=== PATIENT | female | born 1945 | race Caucasian/White ===

== ENCOUNTER 2018-05-16 09:26 | Outpatient (CLI) | payer MEDICARE | END 2018-05-16 23:59 | LOC: VAS 09:26 | PROVIDERS: ATTEND Family Medicine | DX: I70.8 Atherosclerosis of other arteries (principal); J44.9 Chronic obstructive pulmonary disease, unspecified; F17.200 Nicotine dependence, unspecified, uncomplicated | CPT/HCPCS: 93880 ==

== ENCOUNTER 2021-12-19 16:38 | Emergency (ER) | payer MEDICARE ==
[~2021-12-19] VITALS: Ht 167.6 cm; Wt 61.3 kg
[~2021-12-19 16:38] MED LIST: ALBU8.5H17 INH; CLOP75TA34 PO; LORA10CA PO; PANT40TA54 PO; TRAZ-251 PO
[2021-12-19 17:30] VITALS: BP 130/90
[2021-12-19] MEDS ORDERED: HYDROcodone/acetaminophen 5mg/325mg tablet PO ONE (18:50)
[2021-12-19 19:24] LABS: CLARITY,URINE CLEAR (Clear); COLOR,URINE YELLOW (Yellow); GLUCOSE, URINE NEGATIVE (Neg); KETONES,URINE 15 mg/dl (Neg); LEUKOCYTE ESTERASE ,URINE NEGATIVE (Neg); NITRITES, URINE NEGATIVE (Neg); OCCULT BLOOD,URINE MODERATE (Neg); PH,URINE 5.5 (4.8-8.0); PROTEIN,URINE NEGATIVE (Neg); UROBILINOGEN,URINE 0.2 E.U/dL (0.2-1.0)
[2021-12-19 19:36] LABS: UA COLLECTION TYPE VOIDED
[2021-12-19 19:37] LABS: BACTERIA,URINE NONE SEEN /HPF (Neg); SQUAMOUS EPITHELIAL CELL,UR FEW /LPF (FEW); WBC,URINE NONE SEEN /HPF (0-4)
[2021-12-19] MEDS ORDERED: ONDA4TAB12 PO (19:59)
[2021-12-19] MEDS ORDERED: ALBU6.7H9 INH (19:59)
== END 2021-12-19 21:11 | disposition home or self-care (01) ==
LOC: ER 16:39
DX: U07.1 COVID-19 (principal); M54.50 Low back pain, unspecified; R10.30 Lower abdominal pain, unspecified; J44.9 Chronic obstructive pulmonary disease, unspecified; M19.90 Unspecified osteoarthritis, unspecified site; Z87.440 Personal history of urinary (tract) infections; Z86.73 Personal history of transient ischemic attack (TIA), and cerebral infarction without residual deficits; Z98.890 Other specified postprocedural states; Z95.5 Presence of coronary angioplasty implant and graft; Z90.710 Acquired absence of both cervix and uterus; Z79.899 Other long term (current) drug therapy
CPT/HCPCS: 81001; 87635; 99283; C9803

== ENCOUNTER → 2025-04-13 | Outpatient (CLI) | payer MEDICARE ==
[~2025-04-13] MED LIST changes: +ALBU6.7H14 INH; +ONDA-243 PO; +iohexol 300mg/ml 100ml inj. ONE
[2025-04-13 08:52] LABS: ALBUMIN 3.8 G/DL (3.4-5.0); ANION GAP 8 (8-16); BLOOD UREA NITROGEN 22 MG/DL (7-18); BUN/CREATININE RATIO 19.1 (10.0-20.0); CALCIUM 8.7 MG/DL (8.5-10.1); CHLORIDE 105 MMOL/L (99-107); CREATININE 1.15 MG/DL (0.40-0.90); GLUCOSE 106 MG/DL (70-104); SODIUM 139 MMOL/L (135-145); eGFR 46 ML/MIN
--- NOTE | 2025-04-13 22:13 | RADIOLOGY REPORT ---
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 During the uneventful, intravenous administration of c ontrast material, multislice data acquisition was obtained through the abdomen and pelvis. The data s et was subsequently reconstructed into axial images. Images were reviewed on a work station using a c ombination of axial and multiplanar using a variety of window levels and settings. Patient was also given oral contrast. Radiation Dose Information: CT Dose: CTDI volume is 16.76 mGy. Dose-length product is 743.98 mGy*cm FINDINGS: Lung Bases: No acute or significant lung base finding. Normal heart size. No pleural or pericardial effusion. Liver: The liver is normal in size. No focal lesions. Normal hepatic vascular enhancement. Gallbladder and Biliary Tree: The gallbladder is surgically absent. Spleen: Unremarkable Pancreas: The pancreas is normal in appearance without focal lesions or abnormal enhancement. Adrenal Glands: Unremarkable Kidneys: Kidneys demonstrate normal symmetric enhancement without focal lesions, calculi or hydroneph rosis. Bladder: Unremarkable Bowel: The stomach, small and large bowel are well opacified with oral contrast. The stomach is gross ly normal in appearance. Small bowel and colon are normal in caliber and distribution. The appendix is not visualized; however, no secondary findings of acute appendicitis identified. Ascites: Absent Lymphadenopathy: No mesenteric, retroperitoneal or periportal lymphadenopathy. Abdominal Wall and Mesentery: Unremarkable. Vasculature: The visualized abdominal aorta is normal in size and caliber. Abdominal and pelvic vess els demonstrate normal enhancement. Calcified plaque seen in the abdominal aorta and iliac vessels. Pelvic Organs: Unremarkable Musculoskeletal: No aggressive focal bony lesions, acute fractures or dislocation. Severe disc diseas e with sclerotic endplate and vacuum phenomena at L5-S1. Soft tissues: Unremarkable. IMPRESSION: 1. No acute abnormality in the abdomen or pelvis. 2. L5-S1 there is severe disc disease with vacuum phenomena All CT scans at this medical facility are performed using dose modulation techniques as appropriate t o a performed exam including the following: Automated exposure control was utilized; adjustment of e MA and/or KV according to patient size; and use of iterative reconstruction technique.
== END | disposition home or self-care (01) ==
LOC: RAD 08:10
PROVIDERS: ATTEND Surgery
DX: I70.0 Atherosclerosis of aorta (principal); M51.379 Other intervertebral disc degeneration, lumbosacral region without mention of lumbar back pain or lower extremity pain; R10.84 Generalized abdominal pain; R14.0 Abdominal distension (gaseous); K46.9 Unspecified abdominal hernia without obstruction or gangrene; Z90.49 Acquired absence of other specified parts of digestive tract; J34.89 Other specified disorders of nose and nasal sinuses; I70.8 Atherosclerosis of other arteries
CPT/HCPCS: 36415; 74177; 80048; Q9967